=== PATIENT | female | born 2000 | race Caucasian/White ===

== ENCOUNTER 2024-03-25 13:25 | Emergency (ER) | payer OTHER ==
[2024-03-25] MEDS ORDERED: methylPREDNISolone Sod Succ/PF 125 MG/2 ML VIAL ONE (14:44)
[2024-03-25] MEDS ORDERED: Ibuprofen 200 MG TAB ONE (14:44)
[2024-03-25] MEDS ORDERED: Cyclobenzaprine 10 MG TAB ONE (14:44)
== END 2024-03-25 15:15 | disposition home or self-care (01) ==
LOC: CSHERS 13:25
DX: M54.50 Low back pain, unspecified (principal); F90.9 Attention-deficit hyperactivity disorder, unspecified type
CPT/HCPCS: 96372; 99283; J2919